=== PATIENT | female | born 1985 | race African-American/Black ===

== ENCOUNTER 2022-12-17 15:55 | Emergency (ER) | payer SELFPAY ==
[2022-12-17] MEDS ORDERED: Ondansetron PF 4 MG/2 ML Vial ONE (16:16)
[2022-12-17] MEDS ORDERED: Sodium Chloride 0.9% 1,000 ML ONE (16:16)
[2022-12-17 16:24] LABS: #Lymphocytes 2.4 thou/uL (1.20-3.40); #Monocytes 0.3 thou/uL (0.11-0.59); #Neutrophils 3.1 thou/uL (1.40-6.50); %Basophils 0.7 % (0.0-1.0); %Eosinophils 0.8 % (0.0-10.0); %Lymphocytes 40.3 % (21.0-51.0); %Monocytes 5.7 % (0.0-10.0); %Neutrophils 52.5 % (42.0-75.0); Hemoglobin 14.6 g/dL (12.0-16.0); Mean Corpuscular Hemoglobin 32.1 pg (27.0-31.0); Mean Corpuscular Volume 97.4 fl (78.0-98.0); Mean Platelet Volume 7.5 fL (7.4-10.4); Platelet Count 221 10x3/uL (130-400); RBC Distribution Width 12.2 % (11.5-14.5); Red Blood Cell (RBC) Count 4.54 mill/uL (4.20-5.40)
[2022-12-17 16:37] LABS: BHCG - Serum Negative (NEGATIVE); Pregs Control Bar Appear? YES (CONTROL BAR)
[2022-12-17 16:41] LABS: ALT (SGPT) 10 U/L (8-55); AST (SGOT) 16 U/L (5-34); Albumin 4.9 g/dL (3.5-5.0); Alkaline Phosphatase 76 U/L (40-110); Anion Gap 18 mmol/L (10-20); BUN (Urea Nitrogen) 9 mg/dL (7.0-18.7); Bilirubin, Total 1.6 mg/dL (0.2-1.2); Calc. Creatinine Clearance 0 mL/min (70-130); Calcium 9.7 mg/dL (7.8-10.44); Carbon Dioxide 24 mmol/L (22-29); Chloride 105 mmol/L (98-107); Estimated GFR 102; Glucose 91 mg/dL (70-105); Potassium 3.7 mmol/L (3.5-5.1); Protein, Total 7.9 g/dL (6.0-8.3); Sodium 143 mmol/L (136-145)
[2022-12-17] MEDS ORDERED: Potassium Chloride 20 MEQ TAB ONE (17:17)
== END 2022-12-17 17:30 | disposition home or self-care (01) ==
LOC: NAV ERS 15:55
DX: E86.0 Dehydration (principal); R03.0 Elevated blood-pressure reading, without diagnosis of hypertension; F17.210 Nicotine dependence, cigarettes, uncomplicated
CPT/HCPCS: 36415; 80053; 83735; 84703; 85025; 96361; 96374; J2405; J7050

== ENCOUNTER 2024-08-22 16:56 | Emergency (ER) | payer OTHER, SELFPAY ==
[2024-08-22] MEDS ORDERED: Tetracaine 0.5% PF 4 ML BOT ONE (19:27)
== END 2024-08-22 20:10 | disposition short-term general hospital (02) ==
LOC: NAV ERS 16:56
DX: S02.831A Fracture of medial orbital wall, right side, initial encounter for closed fracture (principal); H54.7 Unspecified visual loss; F17.210 Nicotine dependence, cigarettes, uncomplicated; Y04.2XXA Assault by strike against or bumped into by another person, initial encounter
CPT/HCPCS: 70450; 70486